=== PATIENT | male | born 1945 | race Caucasian/White ===

== ENCOUNTER → 2017-04-03 | Outpatient (CLI) | payer OTHER, BC | END | disposition home or self-care (01) | LOC: NUC 10:51 | DX: M19.012 Primary osteoarthritis, left shoulder (principal); M19.011 Primary osteoarthritis, right shoulder; M47.896 Other spondylosis, lumbar region; Z96.641 Presence of right artificial hip joint; R93.7 Abnormal findings on diagnostic imaging of other parts of musculoskeletal system; Z90.79 Acquired absence of other genital organ(s); R97.20 Elevated prostate specific antigen [PSA] | CPT/HCPCS: 78306; A9503 ==

== ENCOUNTER → 2017-09-10 | Outpatient (CLI) | payer OTHER, BC | END | disposition home or self-care (01) | LOC: NUC 09:06 | DX: M47.896 Other spondylosis, lumbar region (principal); Z96.641 Presence of right artificial hip joint; R93.7 Abnormal findings on diagnostic imaging of other parts of musculoskeletal system; R97.21 Rising PSA following treatment for malignant neoplasm of prostate | CPT/HCPCS: 78306; A9503 ==